=== PATIENT | female | born 1960 | race American Indian/Alaskan Native ===

== ENCOUNTER 2017-03-08 02:40 | Inpatient (IN) | payer OTHER ==
[2017-03-08] MEDS ORDERED: TYLENOL ONE (02:58)
[2017-03-08 04:30] LABS: Mean Corpuscular Hemoglobin 25 pg (28-32); Mean Corpuscular Volume 74 fl (79-97)
[2017-03-08 04:35] LABS: Hemoglobin 9.9 gm/dl (10.1-14.3)
[2017-03-08 04:36] LABS: Hematocrit 29.4 % (30.3-42.9); Mean Corpuscular HGB Conc 34 % (30-34); Platelet Count 133 K/mm3 (140-440); Red Cell Distribution Width 18.9 % (13.2-15.2)
[2017-03-08 04:45] LABS: Alanine Aminotransferase 21 units/L (7-56); Albumin 4.3 g/dL (3.9-5); BUN/Creatinine Ratio 24; Blood Urea Nitrogen 19 mg/dL (7-17); Calcium 9.5 mg/dL (8.4-10.2); Hemolysis Index 16
[2017-03-08] MEDS ORDERED: TYLENOL PO ONE (05:01)
--- NOTE | 2017-03-08 05:37 | XRay Report ---
FINAL REPORT EXAM: XR CHEST ROUTINE 2V HISTORY: fever, cll, cough TECHNIQUE: PA and lateral chest radiographs PRIORS: None. FINDINGS: No mediastinal shift. Cardiac silhouette is not enlarged. No pneumothorax, effusion, or focal pulmonary opacity. No acute skeletal finding. IMPRESSION: No focal pulmonary opacity.
--- NOTE | 2017-03-08 05:57 | Emergency Department Report ---
- General Chief Complaint: Upper Respiratory Infection Stated Complaint: BODY ACHES AND PAIN Time Seen by Provider: 03/08/17 04:47 Source: patient Mode of arrival: Ambulatory Limitations: No Limitations - History of Present Illness Initial Comments: This is a 56-year-old female with a history of chronic lymphocytic leukemia diagnosed October 2016 not on any medication who presents to the ED complaining of cough, fever, generalized body aches 1 week. Patient states she symptoms got worse yesterday. Patient states she sees an oncologist Dr. Dale Godoy. Patient denies chest pain, shortness of breath, dizziness, headache or any other symptoms. MD Complaint: fever, cough, sore throat - Related Data Previous Rx's Medication Instructions Recorded Last Taken Type Amoxicillin/K Clav Tab [Augmentin 1 each PO Q12HR #10 tablet 01/29/14 Unknown Rx 875MG TAB] Aspirin [Aspirin TAB] 325 mg PO QDAY #30 tablet 01/29/14 Unknown Rx Metoprolol [Lopressor TAB] 50 mg PO BID #60 tablet 01/29/14 Unknown Rx Allergies Allergy/AdvReac Type Severity Reaction Status Date / Time sulfamethoxazole Allergy Rash Verified 01/28/14 02:31 [From Bactrim] trimethoprim [From Bactrim] Allergy Rash Verified 01/28/14 02:31 ED Review of Systems ROS: Stated complaint: BODY ACHES AND PAIN Other details as noted in HPI Constitutional: denies: chills, fever Eyes: denies: eye pain, eye discharge, vision change ENT: congestion (nasal). denies: ear pain, throat pain Respiratory: cough. denies: shortness of breath, wheezing Cardiovascular: denies: chest pain, palpitations Endocrine: no symptoms reported Gastrointestinal: denies: abdominal pain, nausea, vomiting, diarrhea Genitourinary: denies: urgency, dysuria, discharge Musculoskeletal: denies: back pain, joint swelling, arthralgia Skin: denies: rash, lesions Neurological: denies: headache, weakness, paresthesias Psychiatric: denies: anxiety, depression Hematological/Lymphatic: denies: easy bleeding, easy bruising ED Past Medical Hx - Past Medical History Previous Medical History?: Yes Hx Hypertension: Yes Additional medical history: CLL - Surgical History Past Surgical History?: No - Social History Smoking Status: Never Smoker Substance Use Type: None - Medications Home Medications: Home Medications Medication Instructions Recorded Confirmed Last Taken Type Amoxicillin/K Clav Tab [Augmentin 1 each PO Q12HR #10 tablet 01/29/14 Unknown Rx 875MG TAB] Aspirin [Aspirin TAB] 325 mg PO QDAY #30 tablet 01/29/14 Unknown Rx Metoprolol [Lopressor TAB] 50 mg PO BID #60 tablet 01/29/14 Unknown Rx ED Physical Exam - General Limitations: No Limitations General appearance: alert, in no apparent distress - Head Head exam: Present: atraumatic, normocephalic - Eye Eye exam: Present: normal appearance, PERRL - ENT ENT exam: Present: normal exam, mucous membranes moist - Neck Neck exam: Present: normal inspection, full ROM. Absent: tenderness, meningismus, lymphadenopathy - Respiratory Respiratory exam: Present: normal lung sounds bilaterally. Absent: respiratory distress, wheezes, rales, rhonchi - Cardiovascular Cardiovascular Exam: Present: regular rate, normal rhythm. Absent: systolic murmur, diastolic murmur, rubs, gallop - GI/Abdominal GI/Abdominal exam: Present: soft, normal bowel sounds - Extremities Exam Extremities exam: Present: normal inspection - Back Exam Back exam: Present: normal inspection - Neurological Exam Neurological exam: Present: alert, oriented X3 - Psychiatric Psychiatric exam: Present: normal affect, normal mood - Skin Skin exam: Present: warm, dry, intact, normal color. Absent: rash ED Course Vital Signs 03/08/17 02:59 Temperature 101.3 F H Pulse Rate 115 H Respiratory 18 Rate Blood Pressure 159/77 O2 Sat by Pulse 98 Oximetry - Consultations Consultation #1: Spoke with heme oncologist marketing and promotions manager Dr. López who states the patient should be admitted for observation and he will see the patient in the morning. 03/08/17 05:53 Consultation #2: Discussed case with Dr. Godoy the hospitalist who is aware that the patient needs to be admitted. 03/08/17 05:54 ED Medical Decision Making - Lab Data Result diagrams: 03/08/17 03:18 03/08/17 03:18 - Radiology Data Radiology results: report reviewed, image reviewed FINAL REPORT EXAM: XR CHEST ROUTINE 2V HISTORY: fever, cll, cough TECHNIQUE: PA and lateral chest radiographs PRIORS: None. FINDINGS: No mediastinal shift. Cardiac silhouette is not enlarged. No pneumothorax, effusion, or focal pulmonary opacity. No acute skeletal finding. IMPRESSION: No focal pulmonary opacity. Transcribed By: MB Dictated By: KIMBERLY MISTRY MD Electronically Authenticated By: KIMBERLY MISTRY MD Signed Date/Time: 03/08/17 0133 - Medical Decision Making There is a 56-year-old female presents with upper respiratory tract infection ED course: Influenza A and B tests were negative. Tylenol administered for fever. Urinalysis, urine culture pending CBC shows elevated white count of sore 210,000. Chest x-ray ordered, Lactic acid ordered, VBG pH ordered. Chest x-ray within normal limits, lactic acid normal, VBG elevated I discussed case with attending Dr. Henao. I discussed patient with oncologist marketing and promotions manager Dr. Negrete. Based on this consultations patient will be admitted for observation and will be seen by oncologist in the morning. I discussed the patient and she will be staying overnight and will be admitting hospital. Critical care attestation.: If time is entered above; I have spent that time in minutes in the direct care of this critically ill patient, excluding procedure time. ED Disposition Clinical Impression: Elevated WBC count Qualifiers: Leukocytosis type: other Qualified Code(s): D72.828 - Other elevated white blood cell count Leukemia Qualifiers: Leukemia type: chronic, unspecified type Disposition: OP ADMIT IP TO THIS HOSP Is pt being admited?: Yes Does the pt Need Aspirin: No Condition: Stable Referrals: KEISHA LOCO MD [Primary Care Provider] - 3-5 Days
[2017-03-08 07:01] LABS: Anisocytosis 1+; Basophils % (Manual) 0 % (0.0-1.8); Eosinophils % (Manual) 0 % (0.0-4.3); Hypochromasia 1+; Ovalocytes 1+; Total Cells Counted 100
[2017-03-08 07:03] LABS: Acanthocytes Rare; Smudge Cells 3+; Stomatocytes Rare
[2017-03-08 07:05] LABS: Platelet Estimate Consistent w Auto
[2017-03-08 08:22] LABS: Bilirubin,Urine NEG (Negative); Blood,Urine SM (Negative); Color,Urine Red (Yellow); Nitrite,Urine NEG (Negative); Protein,Urine <15 mg/dL mg/dL (Negative); RBC,Urine < 1.0 /HPF (0.0-6.0); Urobilinogen,Urine < 2.0 mg/dL (<2.0)
[2017-03-08] MEDS ORDERED: DULCOLAX PR PRN (10:23)
[2017-03-08] MEDS ORDERED: ZOFRAN IV PRN (10:23)
[2017-03-08] MEDS ORDERED: MILK OF MAGNESIA PO PRN (10:23)
[2017-03-08] MEDS ORDERED: TYLENOL PO PRN (10:23)
--- NOTE | 2017-03-08 10:28 | History and Physical Report ---
History of Present Illness Date of examination: 03/08/17 Date of admission: 03/08/17 06:58 Chief complaint: Fever History of present illness: This is a 56-year-old female with a history of chronic lymphocytic leukemia diagnosed October 2016 not on any medication who presents to the ED complaining of cough, fever, generalized body aches 1 week. Patient states she symptoms got worse since yesterday. Patient states that she follows an oncologist Dr. Dale Godoy. Patient denies chest pain, shortness of breath, dizziness, headache or any other symptoms. Past medical History: h/o CLL Past surgical History: None Social History: Lives with family, denies any smoking, drinking and elicit drug abuse. Family History: No Significant h/o for cancer Review of System: Constitutional:+fever, + chills, no weight loss Ears, eyes, nose, mouth and throat: + nasal congestion, + nasal discharge, + sinus pressure, no vision change, no red eye. Neck: No neck pain or rigidity. Cardiovascular: No chest pain, no orthopnea, no palpitations, no leg swelling Respiratory: No shortness of breath, no cough, no congestion, no wheezing Gastrointestinal: no abdominal pain, no nausea, no vomiting Genitourinary : no dysuria, no hematuria Musculoskeletal: no joint swelling, +muscle ache Integumentary: no rash, no pruritis Neurological: no parathesias, no numbness, no tingling Endocrine: no cold or heat intolerance, no polyuria or polydipsia Hematologic/Lymphatic: no easy bruising, no easy bleeding, + neck gland swelling Allergic/Immunologic: no urticaria, no angioedema. Medications and Allergies Allergies Allergy/AdvReac Type Severity Reaction Status Date / Time sulfamethoxazole Allergy Rash Verified 01/28/14 02:31 [From Bactrim] trimethoprim [From Bactrim] Allergy Rash Verified 01/28/14 02:31 Home Medications Medication Instructions Recorded Confirmed Last Taken Type Amlodipine Besylate [Norvasc] 5 mg PO QDAY 03/08/17 03/08/17 03/08/17 History Aspirin [Aspirin TAB] 325 mg PO QDAY 03/08/17 03/08/17 03/08/17 10:00 History 325 Atenolol/Chlorthalidone 1 each PO DAILY 01/11/18 01/11/18 01/11/18 History [Atenolol-Chlorthalidone 100-25] Ergocalciferol [Vitamin D2] 1 cap PO QWEEK 03/08/17 03/08/17 Unknown History Ferrous Sulfate [Iron] 650 mg PO DAILY 03/08/17 03/08/17 03/07/17 10:00 History Active Meds: Active Medications Acetaminophen (Tylenol) 650 mg PO Q4H PRN PRN Reason: Pain MILD(1-3)/Fever >100.5/RODRIGUEZ Aspirin (Aspirin) 325 mg PO QDAY CAM Bisacodyl (Dulcolax) 10 mg SD QDAY PRN PRN Reason: Constipation unrelieved by MOM Famotidine (Pepcid) 20 mg PO BID [facility] Cefepime HCl 2 gm/ Sodium (Chloride) 20 mls @ 20 mls/10 min IV Q12HR CAM PRN Reason: Protocol Magnesium Hydroxide (Milk Of Magnesia) 30 ml PO Q4H PRN PRN Reason: Constipation Metoprolol Tartrate (Lopressor) 50 mg PO BID [facility] Exam - Physical Exam Narrative exam: GENERAL: well-developed and well-nourished AAF lying on bed appeared to be in mild discomfort. HEENT: Normocephalic. Atraumatic. No conjunctival congestion or icterus. Patient has moist mucous membranes. NECK: Supple. Trachea midline. + cervical lymphadenopathy CHEST/LUNGS: Clear to auscultated bilaterally, breathing nonlabored. No wheezes crackles or rhonchi. HEART/CARDIOVASCULAR: Regular in rate and rhythm. S1 and S2 positive. ABDOMEN: Abdomen is soft, nontender. Patient has normal bowel sounds. SKIN: There is no rash. Warm and dry. NEURO: No focal motor deficit. Follows command. MUSCULOSKELETAL: No joint effusion or tenderness. EXTRIMITY: No edema, no cyanosis or clubbing. PSYCH: Cooperative. - Constitutional Vitals: Temp Pulse Resp BP Pulse Ox 98.6 F 89 18 155/66 98 03/08/17 07:15 03/08/17 07:15 03/08/17 07:57 03/08/17 07:15 03/08/17 07:57 Results - Labs CBC & Chem 7: 03/09/17 20:38 03/08/17 03:18 Labs: Abnormal lab results 03/08/17 03/08/17 03/08/17 Range/Units 03:18 03:18 05:50 WBC 210.0 H* (4.5-11.0) K/mm3 Hgb 9.9 L (10.1-14.3) gm/dl Hct 29.4 L (30.3-42.9) % MCV 74 L (79-97) fl MCH 25 L (28-32) pg RDW 18.9 H (13.2-15.2) % Plt Count 133 L (140-440) K/mm3 Seg Neuts % (Manual) 3.0 L (40.0-70.0) % Lymphocytes % (Manual) 87.0 H (13.4-35.0) % Lymphocytes # (Manual) 182.7 H (1.2-5.4) K/mm3 Monocytes # (Manual) 12.6 H (0.0-0.8) K/mm3 VBG pH 7.422 H (7.320-7.420) Chloride 96.3 L (98-107) mmol/L BUN 19 H (7-17) mg/dL Glucose 107 H (65-100) mg/dL Urine WBC (Auto) (0.0-6.0) /HPF 03/08/17 Range/Units 07:55 WBC (4.5-11.0) K/mm3 Hgb (10.1-14.3) gm/dl Hct (30.3-42.9) % MCV (79-97) fl MCH (28-32) pg RDW (13.2-15.2) % Plt Count (140-440) K/mm3 Seg Neuts % (Manual) (40.0-70.0) % Lymphocytes % (Manual) (13.4-35.0) % Lymphocytes # (Manual) (1.2-5.4) K/mm3 Monocytes # (Manual) (0.0-0.8) K/mm3 VBG pH (7.320-7.420) Chloride (98-107) mmol/L BUN (7-17) mg/dL Glucose (65-100) mg/dL Urine WBC (Auto) 27.0 H (0.0-6.0) /HPF - Imaging and Cardiology Chest x-ray: report reviewed (no infiltrates) Assessment and Plan CLL - consulted hematology for further Mx - will also initiate sepsis protocol Possible sepsis - We will obtain blood culture, urine culture and sputum culture - Place on empiric antibiotics for now with cefepime - Continue IV fluid hydration and monitor BP - Continue to trend lactate HTN - will initiate home dose of metoprolol Anemia with thrombocytopenia - cont to monitor, likely due CLL Provide DVT prophylaxis Px with scd due to thrombocytopenia
[2017-03-08] MEDS ORDERED: PEPCID ONE (10:48)
[2017-03-08] MEDS: LOPRESSOR PO SCH ×2 (10:58→22:36)
[2017-03-08] MEDS: ASPIRIN PO SCH (10:59)
[2017-03-08] MEDS: MAXIPIME 2 GM in NACL 0.9% 20 ML IV SCH (12:08)
--- NOTE | 2017-03-08 19:07 | Consultation ---
History of Present Illness - Reason for Consult Consult date: 03/08/17 CLL/URI Requesting physician: LAUREL VASQUEZ - History of Present Illness Thank you for this consult, patient seen, examined, record reviewed, case d/w patient, and with ED doctor.I have called Dr Lima and d/w him, he was to call me back.Patient with known CLL, not on any active tx yet. She was dx more than 4yrs ago, and has remained stable. She presented to the ED this am, with flu like sxs, all started 1week ago..Her last lab draw was at [facility] , and she can not remember level.I have reviewed the peripheral blood, and no sign of any transformation, at this time.She has maintained Tmax of 102+, and signs of facial sinus congestion on my exam. Flu test in the ED was negative.UA shows 27WBC.My recommendation, will be to do CT of the facial/sinuses, and put on good coverage ABX, also do BC, nasal swab/culture.Will follow you. once recovered, she will go back to DR Lima. Past History Past Medical History: anemia, cancer Medications and Allergies Allergies Allergy/AdvReac Type Severity Reaction Status Date / Time sulfamethoxazole Allergy Rash Verified 01/28/14 02:31 [From Bactrim] trimethoprim [From Bactrim] Allergy Rash Verified 01/28/14 02:31 Home Medications Medication Instructions Recorded Confirmed Last Taken Type Amlodipine Besylate [Norvasc] 5 mg PO QDAY 03/08/17 03/08/17 03/08/17 History Aspirin [Aspirin TAB] 325 mg PO QDAY 03/08/17 03/08/17 03/08/17 10:00 History 325 Atenolol/Chlorthalidone 1 each PO DAILY 03/08/17 03/08/17 03/08/17 History [Atenolol-Chlorthalidone 100-25] Ergocalciferol [Vitamin D2] 1 cap PO QWEEK 03/08/17 03/08/17 Unknown History Ferrous Sulfate [Iron] 650 mg PO DAILY 03/08/17 03/08/17 03/07/17 10:00 History Active Meds: Active Medications Acetaminophen (Tylenol) 650 mg PO Q4H PRN PRN Reason: Pain MILD(1-3)/Fever >100.5/RODRIGUEZ Last Admin: 03/08/17 18:20 Dose: 650 mg Aspirin (Aspirin) 325 mg PO QDAY [facility] Last Admin: 03/08/17 10:59 Dose: 325 mg Bisacodyl (Dulcolax) 10 mg CO QDAY PRN PRN Reason: Constipation unrelieved by [facility] Famotidine (Pepcid) 20 mg PO BID [facility] Cefepime HCl 2 gm/ Sodium (Chloride) 20 mls @ 20 mls/10 min IV Q12H CAM PRN Reason: Protocol Last Admin: 03/08/17 12:08 Dose: 20 mls/10 min Sodium Chloride (Nacl 0.9% 1000 Ml) 1,000 mls @ 75 mls/hr IV DIRECT CAM Magnesium Hydroxide (Milk Of Magnesia) 30 ml PO Q4H PRN PRN Reason: Constipation Metoprolol Tartrate (Lopressor) 50 mg PO BID [facility] Last Admin: 03/08/17 10:58 Dose: Not Given Ondansetron HCl (Zofran) 4 mg IV Q8H PRN PRN Reason: N/V unrelieved by Reglan Review of Systems Constitutional: fatigue, malaise Ears, nose, mouth and throat: sinus pressure, sinus pain Breasts: deferred Exam - Constitutional Vitals: Temp Pulse Resp BP Pulse Ox 102.6 F H 98 H 18 100/53 97 03/08/17 16:00 03/08/17 16:00 03/08/17 16:00 03/08/17 16:00 03/08/17 14:24 General appearance: Present: mild distress, well-nourished - EENT Eyes: Present: PERRL ENT: hearing intact, clear oral mucosa - Neck Neck: Present: supple, normal ROM - Respiratory Respiratory effort: normal Respiratory: bilateral: CTA - Cardiovascular Heart Sounds: Present: S1 & S2. Absent: rub, click - Extremities Extremities: pulses symmetrical, No edema Peripheral Pulses: within normal limits - Abdominal General gastrointestinal: Present: soft, non-tender, non-distended, normal bowel sounds Female genitourinary: Present: normal - Rectal Rectal Exam: deferred - Integumentary Integumentary: Present: clear, warm, dry - Musculoskeletal Musculoskeletal: gait normal, strength equal bilaterally - Psychiatric Psychiatric: appropriate mood/affect, intact judgment & insight - Neurologic Neurologic: CNII-XII intact, moves all extremities Results - Labs CBC & Chem 7: 03/08/17 03:18 03/08/17 03:18 Labs: Abnormal lab results 03/08/17 03/08/17 03/08/17 Range/Units 03:18 03:18 05:50 WBC 210.0 H* (4.5-11.0) K/mm3 Hgb 9.9 L (10.1-14.3) gm/dl Hct 29.4 L (30.3-42.9) % MCV 74 L (79-97) fl MCH 25 L (28-32) pg RDW 18.9 H (13.2-15.2) % Plt Count 133 L (140-440) K/mm3 Seg Neuts % (Manual) 7.0 L (40.0-70.0) % Lymphocytes % (Manual) 90.0 H (13.4-35.0) % Lymphocytes # (Manual) 182.7 H (1.2-5.4) K/mm3 Monocytes # (Manual) 12.6 H (0.0-0.8) K/mm3 VBG pH 7.422 H (7.320-7.420) Chloride 96.3 L (98-107) mmol/L BUN 19 H (7-17) mg/dL Glucose 107 H (65-100) mg/dL Urine WBC (Auto) (0.0-6.0) /HPF 03/08/17 Range/Units 07:55 WBC (4.5-11.0) K/mm3 Hgb (10.1-14.3) gm/dl Hct (30.3-42.9) % MCV (79-97) fl MCH (28-32) pg RDW (13.2-15.2) % Plt Count (140-440) K/mm3 Seg Neuts % (Manual) (40.0-70.0) % Lymphocytes % (Manual) (13.4-35.0) % Lymphocytes # (Manual) (1.2-5.4) K/mm3 Monocytes # (Manual) (0.0-0.8) K/mm3 VBG pH (7.320-7.420) Chloride (98-107) mmol/L BUN (7-17) mg/dL Glucose (65-100) mg/dL Urine WBC (Auto) 27.0 H (0.0-6.0) /HPF Assessment and Plan - Patient Problems (1) Leukemia Current Visit: Yes Status: Acute Qualifiers: Leukemia type: chronic, unspecified type Plan to address problem: tx infection/supportive. (2) Uncontrolled hypertension Current Visit: No Status: Chronic Plan to address problem: BP control (3) Sinus congestion Current Visit: Yes Status: Acute Plan to address problem: see notes above.
[2017-03-08 21:29] LABS: Hematocrit 28.2 % (30.3-42.9); Hemoglobin 9.5 gm/dl (10.1-14.3); Mean Corpuscular HGB Conc 34 % (30-34); Mean Corpuscular Volume 74 fl (79-97); Platelet Count 128 K/mm3 (140-440); Red Blood Count 3.82 M/mm3 (3.65-5.03); Red Cell Distribution Width 19.3 % (13.2-15.2)
[2017-03-08 21:33] LABS: Mean Corpuscular Hemoglobin 25 pg (28-32)
--- NOTE | 2017-03-08 22:18 | Cat Scan Report ---
FINAL REPORT PROCEDURE: CT SINUSES WO/W CON TECHNIQUE: Computerized tomography of the facial bones and soft tissues with axial and coronal sections performed from the cranial aspect of the frontal sinuses to the caudal portion of the mandible without contrast material. HISTORY: severe sinus congestion. COMPARISON: No prior studies are available for comparison. FINDINGS: Bones: No significant abnormality. Paranasal sinuses: There is fluid in the left maxillary sinus.. There is fluid in the ethmoid air cells on the left and the left side of the sphenoid sinus. Soft tissues: No significant abnormality. Other: The right ostiomeatal unit is obstructed by mucosal thickening.. IMPRESSION: There is left maxillary, ethmoid and sphenoid sinusitis. There is obstruction of the right osteal meatal unit due to mucosal thickening. There are no bony abnormalities.
[2017-03-08 22:20] LABS: Basophils % (Manual) 0 % (0.0-1.8); Eosinophils % (Manual) 0.5 % (0.0-4.3); Monocytes % (Manual) 1.5 % (0.0-7.3); Total Cells Counted 200
[2017-03-08 22:21] LABS: Anisocytosis 1+; Platelet Estimate Appears Decreased
[2017-03-08 22:22] LABS: Target Cells Few
[2017-03-08] MEDS: PEPCID PO SCH (22:36)
[2017-03-09] MEDS: MAXIPIME 2 GM in NACL 0.9% 20 ML IV SCH ×2 (01:47→13:49)
[2017-03-09] MEDS: ASPIRIN PO SCH (09:35)
[2017-03-09] MEDS: LOPRESSOR PO SCH ×2 (09:35→22:53)
[2017-03-09] MEDS: PEPCID PO SCH (09:36)
--- NOTE | 2017-03-09 13:25 | Progress Note ---
Assessment and Plan CLL - consulted hematology for further Mx - now getting treated for sepsis - will f/u with her oncologist outpt for possible treatment Possible sepsis -likely due to sinusitis, negative for influenza - We follow blood culture, urine culture and sputum culture - cont on empiric antibiotics for now with cefepime - Continue IV fluid hydration and monitor BP - Continue to trend lactate HTN - will cont home dose of metoprolol Anemia with thrombocytopenia - cont to monitor, likely due CLL Provide DVT prophylaxis Px with scd due to thrombocytopenia Subjective Date of service: 03/09/17 Interval history: pt seen and examined states her symptom much better today tolerating diet Objective - Exam Narrative Exam: GENERAL: well-developed and well-nourished AAF lying on bed appeared to be in no discomfort. HEENT: Normocephalic. Atraumatic. No conjunctival congestion or icterus. Patient has moist mucous membranes. NECK: Supple. Trachea midline. + cervical lymphadenopathy CHEST/LUNGS: Clear to auscultated bilaterally, breathing nonlabored. No wheezes crackles or rhonchi. HEART/CARDIOVASCULAR: Regular in rate and rhythm. S1 and S2 positive. ABDOMEN: Abdomen is soft, nontender. Patient has normal bowel sounds. SKIN: There is no rash. Warm and dry. NEURO: No focal motor deficit. Follows command. MUSCULOSKELETAL: No joint effusion or tenderness. EXTRIMITY: No edema, no cyanosis or clubbing. PSYCH: Cooperative. - Constitutional Vitals: Vital Signs - 12hr 03/09/17 03/09/17 03/09/17 07:40 09:35 11:59 Temperature 100.4 F H 98.7 F Pulse Rate 97 H 97 H 72 Respiratory 20 22 Rate Blood Pressure 150/71 150/71 125/71 O2 Sat by Pulse 93 97 Oximetry - Labs CBC & Chem 7: 03/09/17 20:38 03/08/17 03:18 Labs: Abnormal lab results 03/08/17 03/08/17 Range/Units 03:18 21:06 WBC 190.3 H* (4.5-11.0) K/mm3 Hgb 9.5 L (10.1-14.3) gm/dl Hct 28.2 L (30.3-42.9) % MCV 74 L (79-97) fl MCH 25 L (28-32) pg RDW 19.3 H (13.2-15.2) % Plt Count 128 L (140-440) K/mm3 Seg Neuts % (Manual) 7.0 L 13.0 L (40.0-70.0) % Lymphocytes % (Manual) 90.0 H 85.0 H (13.4-35.0) % Seg Neutrophils # Man 24.7 H (1.8-7.7) K/mm3 Lymphocytes # (Manual) 161.8 H (1.2-5.4) K/mm3 Monocytes # (Manual) 2.9 H (0.0-0.8) K/mm3 Eosinophils # (Manual) 1.0 H (0.0-0.4) K/mm3
[2017-03-09] MEDS: NACL 0.9% 1000 ML 1,000 ML IV SCH (15:50)
[2017-03-09 22:04] LABS: Hematocrit 25.5 % (30.3-42.9); Hemoglobin 8.5 gm/dl (10.1-14.3); Mean Corpuscular HGB Conc 33 % (30-34); Mean Corpuscular Volume 75 fl (79-97); Platelet Count 114 K/mm3 (140-440); Red Blood Count 3.43 M/mm3 (3.65-5.03); Red Cell Distribution Width 18.9 % (13.2-15.2)
[2017-03-09 22:10] LABS: Mean Corpuscular Hemoglobin 25 pg (28-32)
--- NOTE | 2017-03-09 22:23 | Progress Note ---
Assessment and Plan - Patient Problems (1) Leukemia Current Visit: Yes Status: Acute Qualifiers: Leukemia type: chronic, unspecified type Plan to address problem: tx infection/supportive. (2) Uncontrolled hypertension Current Visit: No Status: Chronic Plan to address problem: BP control (3) Sinus congestion Current Visit: Yes Status: Acute Plan to address problem: see notes above. There is clear evidence of multi level severe sinusitis as per the CT scans. Subjective Date of service: 03/09/17 Interval history: Patient seen/examined, resting in bed, labs/scans reviewed, case d/w patient. CT of the sinuses indicative of severe sinusitis in several sinus zones with air fluid levels.WBC trending down.Patient remains on IV ABX.Will continue to monitor with you. Objective - Constitutional Vitals: Vital Signs - 12hr 03/09/17 03/09/17 11:59 14:56 Temperature 98.7 F 98.8 F Pulse Rate 72 76 Respiratory 22 20 Rate Blood Pressure 125/71 112/65 O2 Sat by Pulse 97 99 Oximetry General appearance: Present: mild distress - EENT Eyes: PERRL, EOM intact ENT: hearing intact, clear oral mucosa Ears: bilateral: normal - Neck Neck: supple, normal ROM - Respiratory Respiratory effort: normal Respiratory: bilateral: CTA - Breasts Breasts: deferred - Cardiovascular Rhythm: regular Heart Sounds: Present: S1 & S2. Absent: gallop, rub Extremities: pulses intact, No edema, normal color, Full ROM - Gastrointestinal General gastrointestinal: Present: soft, non-tender, non-distended, normal bowel sounds Rectal Exam: deferred - Genitourinary Female genitourinary: deferred - Integumentary Integumentary: clear, warm, dry - Musculoskeletal Musculoskeletal: 1, strength equal bilaterally - Neurologic Neurologic: moves all extremities - Psychiatric Psychiatric: memory intact, appropriate mood/affect, intact judgment & insight - Labs CBC & Chem 7: 03/09/17 20:38 03/08/17 03:18 Labs: Abnormal lab results 03/08/17 03/09/17 Range/Units 21:06 20:38 WBC 159.9 H* (4.5-11.0) K/mm3 RBC 3.43 L (3.65-5.03) M/mm3 Hgb 8.5 L (10.1-14.3) gm/dl Hct 25.5 L (30.3-42.9) % MCV 75 L (79-97) fl MCH 25 L (28-32) pg RDW 18.9 H (13.2-15.2) % Plt Count 114 L (140-440) K/mm3 Seg Neuts % (Manual) 13.0 L (40.0-70.0) % Lymphocytes % (Manual) 85.0 H (13.4-35.0) % Seg Neutrophils # Man 24.7 H (1.8-7.7) K/mm3 Lymphocytes # (Manual) 161.8 H (1.2-5.4) K/mm3 Monocytes # (Manual) 2.9 H (0.0-0.8) K/mm3 Eosinophils # (Manual) 1.0 H (0.0-0.4) K/mm3
[2017-03-09 22:45] LABS: Basophils % (Manual) 0 % (0.0-1.8); Eosinophils % (Manual) 0 % (0.0-4.3); Monocytes % (Manual) 0 % (0.0-7.3); Total Cells Counted 200
[2017-03-09 22:46] LABS: Anisocytosis 1+
[2017-03-09 22:47] LABS: Platelet Estimate Appears Decreased; Target Cells Few
[2017-03-10] MEDS: PEPCID PO SCH ×3 (11:39→23:40)
[2017-03-10] MEDS: ASPIRIN PO SCH (11:39)
[2017-03-10] MEDS: LOPRESSOR PO SCH ×2 (11:39→23:44)
--- NOTE | 2017-03-10 11:42 | Progress Note ---
Assessment and Plan Assessment and plan: CLL - consulted hematology for further Mx - now getting treated for sepsis - will f/u with her oncologist outpt for possible treatment Sepsis -likely due to sinusitis, negative for influenza - We follow blood culture, urine culture and sputum culture - cont on empiric antibiotics for now with cefepime - Continue IV fluid hydration and monitor BP - Continue to trend lactate Sinusitis. -Continue treating with antibiotics as noted above. HTN - will cont home dose of metoprolol Anemia with thrombocytopenia - cont to monitor, likely due CLL Provide DVT prophylaxis Px with scd due to thrombocytopenia Disposition. Anticipate discharge in a.m. History Interval history: Patient states that she feels better. No complaints of chest pain, shortness of breath. Hospitalist Physical - Constitutional Vitals: Temp Pulse Resp BP Pulse Ox 98.3 F 76 20 142/67 97 03/10/17 09:15 03/10/17 09:15 03/10/17 09:15 03/10/17 09:15 03/10/17 09:15 General appearance: Present: no acute distress - EENT Eyes: Present: PERRL, EOM intact ENT: hearing intact, clear oral mucosa, dentition normal - Neck Neck: Present: supple, normal ROM - Respiratory Respiratory effort: normal Respiratory: bilateral: CTA - Cardiovascular Rhythm: regular Heart Sounds: Present: S1 & S2. Absent: gallop, rub - Extremities Extremities: no ischemia, No edema, Full ROM - Abdominal General gastrointestinal: soft, non-tender, non-distended, normal bowel sounds - Integumentary Integumentary: Present: clear, warm, dry - Neurologic Neurologic: CNII-XII intact, moves all extremities Results - Labs CBC & Chem 7: 03/09/17 20:38 03/08/17 03:18 Labs: Laboratory Last Values WBC 159.9 K/mm3 (4.5-11.0) H* 03/09/17 20:38 RBC 3.43 M/mm3 (3.65-5.03) L 03/09/17 20:38 Hgb 8.5 gm/dl (10.1-14.3) L 03/09/17 20:38 Hct 25.5 % (30.3-42.9) L 03/09/17 20:38 MCV 75 fl (79-97) L 03/09/17 20:38 MCH 25 pg (28-32) L 03/09/17 20:38 MCHC 33 % (30-34) 03/09/17 20:38 RDW 18.9 % (13.2-15.2) H 03/09/17 20:38 Plt Count 114 K/mm3 (140-440) L 03/09/17 20:38 Lymph % (Auto) Contact Center Engineer 03/09/17 20:38 Lymph # Contact Center Engineer 03/09/17 20:38 Add Manual Diff Complete 03/09/17 20:38 Total Counted 200 03/09/17 20:38 Seg Neutrophils % Contact Center Engineer 03/09/17 20:38 Seg Neuts % (Manual) 12.0 % (40.0-70.0) L 03/09/17 20:38 Band Neutrophils % 0 % 03/09/17 20:38 Lymphocytes % (Manual) 88.0 % (13.4-35.0) H 03/09/17 20:38 Reactive Lymphs % (Man) 0 % 03/09/17 20:38 Monocytes % (Manual) 0 % (0.0-7.3) 03/09/17 20:38 Eosinophils % (Manual) 0 % (0.0-4.3) 03/09/17 20:38 Basophils % (Manual) 0 % (0.0-1.8) 03/09/17 20:38 Metamyelocytes % 0 % 03/09/17 20:38 Myelocytes % 0 % 03/09/17 20:38 Promyelocytes % 0 % 03/09/17 20:38 Blast Cells % 0 % 03/09/17 20:38 Nucleated RBC % Not Reportable 03/09/17 20:38 Seg Neutrophils # Man 19.2 K/mm3 (1.8-7.7) H 03/09/17 20:38 Band Neutrophils # 0.0 K/mm3 03/09/17 20:38 Lymphocytes # (Manual) 140.7 K/mm3 (1.2-5.4) H 03/09/17 20:38 Abs React Lymphs (Man) 0.0 K/mm3 03/09/17 20:38 Monocytes # (Manual) 0.0 K/mm3 (0.0-0.8) 03/09/17 20:38 Eosinophils # (Manual) 0.0 K/mm3 (0.0-0.4) 03/09/17 20:38 Basophils # (Manual) 0.0 K/mm3 (0.0-0.1) 03/09/17 20:38 Metamyelocytes # 0.0 K/mm3 03/09/17 20:38 Myelocytes # 0.0 K/mm3 03/09/17 20:38 Promyelocytes # 0.0 K/mm3 03/09/17 20:38 Blast Cells # 0.0 K/mm3 03/09/17 20:38 Pathologist Review 03/08/17 03:18 WBC Morphology Not Reportable 03/09/17 20:38 Hypersegmented Neuts Not Reportable 03/09/17 20:38 Hyposegmented Neuts Not Reportable 03/09/17 20:38 Hypogranular Neuts Not Reportable 03/09/17 20:38 Smudge Cells Not Reportable 03/09/17 20:38 Toxic Granulation Not Reportable 03/09/17 20:38 Toxic Vacuolation Not Reportable 03/09/17 20:38 Dohle Bodies Not Reportable 03/09/17 20:38 Pelger-Huet Anomaly Not Reportable 03/09/17 20:38 Darrion Rods Not Reportable 03/09/17 20:38 Platelet Estimate Appears decreased 03/09/17 20:38 Clumped Platelets Not Reportable 03/09/17 20:38 Plt Clumps, EDTA Not Reportable 03/09/17 20:38 Large Platelets Not Reportable 03/09/17 20:38 Giant Platelets Not Reportable 03/09/17 20:38 Platelet Satelliting Not Reportable 03/09/17 20:38 Plt Morphology Comment Not Reportable 03/09/17 20:38 RBC Morphology Not Reportable 03/09/17 20:38 Dimorphic RBCs Not Reportable 03/09/17 20:38 Polychromasia Not Reportable 03/09/17 20:38 Hypochromasia Not Reportable 03/09/17 20:38 Poikilocytosis Not Reportable 03/09/17 20:38 Anisocytosis 1+ 03/09/17 20:38 Microcytosis Few 03/09/17 20:38 Macrocytosis Not Reportable 03/09/17 20:38 Spherocytes Not Reportable 03/09/17 20:38 Pappenheimer Bodies Not Reportable 03/09/17 20:38 Sickle Cells Not Reportable 03/09/17 20:38 Target Cells Few 03/09/17 20:38 Tear Drop Cells Not Reportable 03/09/17 20:38 Ovalocytes Not Reportable 03/09/17 20:38 Stomatocytes Rare 03/08/17 03:18 Helmet Cells Not Reportable 03/09/17 20:38 Ortiz-Royal Bodies Not Reportable 03/09/17 20:38 Gibbon Rings Not Reportable 03/09/17 20:38 Rosy Cells Not Reportable 03/09/17 20:38 Bite Cells Not Reportable 03/09/17 20:38 Crenated Cell Not Reportable 03/09/17 20:38 Elliptocytes Few 03/09/17 20:38 Acanthocytes (Spur) Not Reportable 03/09/17 20:38 Rouleaux Not Reportable 03/09/17 20:38 Hemoglobin C Crystals Not Reportable 03/09/17 20:38 Schistocytes Not Reportable 03/09/17 20:38 Malaria parasites Not Reportable 03/09/17 20:38 Nura Bodies Not Reportable 03/09/17 20:38 Hem Pathologist Commnt No 03/09/17 20:38 VBG pH 7.422 (7.320-7.420) H 03/08/17 05:50 Sodium 137 mmol/L (137-145) 03/08/17 03:18 Potassium 4.2 mmol/L (3.6-5.0) 03/08/17 03:18 Chloride 96.3 mmol/L (98-107) L 03/08/17 03:18 Carbon Dioxide 22 mmol/L (22-30) 03/08/17 03:18 Anion Gap 23 mmol/L 03/08/17 03:18 BUN 19 mg/dL (7-17) H 03/08/17 03:18 Creatinine 0.8 mg/dL (0.7-1.2) 03/08/17 03:18 Estimated GFR > 60 ml/min 03/08/17 03:18 BUN/Creatinine Ratio 24 % 03/08/17 03:18 Glucose 107 mg/dL (65-100) H 03/08/17 03:18 Lactic Acid 0.80 mmol/L (0.7-2.0) 03/08/17 05:50 Calcium 9.5 mg/dL (8.4-10.2) 03/08/17 03:18 Total Bilirubin 0.30 mg/dL (0.1-1.2) 03/08/17 03:18 AST 29 units/L (5-40) 03/08/17 03:18 ALT 21 units/L (7-56) 03/08/17 03:18 Alkaline Phosphatase 84 units/L (35-129) 03/08/17 03:18 Total Protein 7.8 g/dL (6.3-8.2) 03/08/17 03:18 Albumin 4.3 g/dL (3.9-5) 03/08/17 03:18 Albumin/Globulin Ratio 1.2 % 03/08/17 03:18 Urine Color Red (Yellow) 03/08/17 07:55 Urine Turbidity Clear (Clear) 03/08/17 07:55 Urine pH 6.0 (5.0-7.0) 03/08/17 07:55 Ur Specific [place] 1.004 (1.003-1.030) 03/08/17 07:55 Urine Protein <15 mg/dl mg/dL (Negative) 03/08/17 07:55 Urine Glucose (UA) Neg mg/dL (Negative) 03/08/17 07:55 Urine Ketones Neg mg/dL (Negative) 03/08/17 07:55 Urine Blood Sm (Negative) 03/08/17 07:55 Urine Nitrite Neg (Negative) 03/08/17 07:55 Urine Bilirubin Neg (Negative) 03/08/17 07:55 Urine Urobilinogen < 2.0 mg/dL (<2.0) 03/08/17 07:55 Ur Leukocyte Esterase Lg (Negative) 03/08/17 07:55 Urine WBC (Auto) 27.0 /HPF (0.0-6.0) H 03/08/17 07:55 Urine RBC (Auto) < 1.0 /HPF (0.0-6.0) 03/08/17 07:55 U Epithel Cells (Auto) < 1.0 /HPF (0-13.0) 03/08/17 07:55
[2017-03-10] MEDS: MAXIPIME 2 GM in NACL 0.9% 20 ML IV SCH ×3 (20:53→23:39)
[2017-03-10 21:36] LABS: Hematocrit 26.7 % (30.3-42.9); Hemoglobin 8.1 gm/dl (10.1-14.3); Mean Corpuscular HGB Conc 31 % (30-34); Mean Corpuscular Volume 79 fl (79-97); Platelet Count 104 K/mm3 (140-440); Red Cell Distribution Width 19.3 % (13.2-15.2)
[2017-03-10 21:43] LABS: Mean Corpuscular Hemoglobin 24 pg (28-32)
[2017-03-10 22:12] LABS: Basophils % (Manual) 0 % (0.0-1.8); Eosinophils % (Manual) 0 % (0.0-4.3); Monocytes % (Manual) 0.5 % (0.0-7.3); Total Cells Counted 200
[2017-03-10 22:13] LABS: Anisocytosis 1+; Platelet Estimate Appears Decreased; Target Cells Few
--- NOTE | 2017-03-10 22:56 | Progress Note ---
Assessment and Plan - Patient Problems (1) Leukemia Current Visit: Yes Status: Acute Qualifiers: Leukemia type: chronic, unspecified type Plan to address problem: tx infection/supportive. (2) Uncontrolled hypertension Current Visit: No Status: Chronic Plan to address problem: BP control (3) Sinus congestion Current Visit: Yes Status: Acute Plan to address problem: see notes above. There is clear evidence of multi level severe sinusitis as per the CT scans. Subjective Date of service: 03/10/17 Interval history: Patient seen/examined, resting in bed, labs/scans reviewed, case d/w patient. CT of the sinuses indicative of severe sinusitis in several sinus zones with air fluid levels.WBC trending down.Patient remains on IV ABX.Will continue to monitor with you. Patient seen/examined, labs reviewed, and continues to come down.There is question as to if she got her IV Abx today or not. If , and upon d/c ,home, she will need to go home on oral ABX for the next 2weeks.preferably levaquin. Objective - Constitutional Vitals: Vital Signs - 12hr 03/10/17 03/10/17 11:39 14:37 Temperature 98.3 F Pulse Rate 72 73 Respiratory 16 Rate Blood Pressure 140/80 135/66 O2 Sat by Pulse 96 Oximetry General appearance: Present: mild distress, well-nourished - EENT Eyes: PERRL, EOM intact ENT: hearing intact, clear oral mucosa Ears: bilateral: normal - Neck Neck: supple, normal ROM - Respiratory Respiratory effort: normal Respiratory: bilateral: CTA - Breasts Breasts: deferred - Cardiovascular Rhythm: regular Heart Sounds: Present: S1 & S2. Absent: gallop, rub Extremities: pulses intact, No edema, normal color, Full ROM - Gastrointestinal General gastrointestinal: Present: soft, non-tender, non-distended, normal bowel sounds Rectal Exam: deferred - Genitourinary Female genitourinary: deferred - Integumentary Integumentary: clear, warm, dry - Musculoskeletal Musculoskeletal: 1, strength equal bilaterally - Neurologic Neurologic: moves all extremities - Psychiatric Psychiatric: memory intact, appropriate mood/affect, intact judgment & insight - Labs CBC & Chem 7: 03/10/17 21:08 03/08/17 03:18 Labs: Abnormal lab results 03/10/17 Range/Units 21:08 WBC 138.9 H* (4.5-11.0) K/mm3 RBC 3.40 L (3.65-5.03) M/mm3 Hgb 8.1 L (10.1-14.3) gm/dl Hct 26.7 L (30.3-42.9) % MCH 24 L (28-32) pg RDW 19.3 H (13.2-15.2) % Plt Count 104 L (140-440) K/mm3 Seg Neuts % (Manual) 6.0 L (40.0-70.0) % Lymphocytes % (Manual) 93.5 H (13.4-35.0) % Seg Neutrophils # Man 8.3 H (1.8-7.7) K/mm3 Lymphocytes # (Manual) 129.9 H (1.2-5.4) K/mm3
[2017-03-11] MEDS: NACL 0.9% 1000 ML 1,000 ML IV SCH (06:38)
[2017-03-11] MEDS: ASPIRIN PO SCH (09:01)
[2017-03-11] MEDS: LOPRESSOR PO SCH (09:01)
[2017-03-11] MEDS: PEPCID PO SCH (09:01)
--- NOTE | 2017-03-11 09:03 | Discharge Summary ---
Providers - Providers Date of Admission: 03/08/17 06:58 Date of discharge: 03/11/17 Attending physician: DEONTE ALLEN 03/08/17 10:23 Consult to Physician [CONS] Routine Consulting Provider: JEAN CARLOS HOWARD Reason For Exam: ALL Place consult to:: Dr Craven Notified:: DR. Mcqueen Phone number called:: [phone] Was contact made?: Yes If yes, spoke with:: DR. Mcquene Time called:: 15:48 Primary care physician: KEISHA LOCO Hospitalization Reason for admission: sepsis Condition: Stable Hospital course: This is a 56-year-old female with a history of chronic lymphocytic leukemia diagnosed October 2016 not on any medication who presented to the ED complaining of cough, fever, generalized body aches 1 week. The patient was admitted with diagnosis of sepsis secondary to sinusitis. Blood and urine cultures and found to be negative. CT scan revealed left maxillary, ethmoid and sphenoid sinusitis. Patient received IV antibiotics of cefepime. Patient has significant improvement throughout hospitalization. Patient was seen by hematology consultation. Patient will be discharged home with 2 weeks of Levaquin. Dedicated discharge time 32 minutes. Disposition: - TO HOME OR SELFCARE Time spent for discharge: 32 - Discharge Diagnoses (1) Sepsis Status: Acute (2) Leukemia Status: Acute Qualifiers: Leukemia type: chronic, unspecified type (3) Leukocytosis Status: Acute Qualifiers: Leukocytosis type: other Qualified Code(s): D72.828 - Other elevated white blood cell count (4) Sinus congestion Status: Acute Core Measure Documentation - Palliative Care Palliative Care/ Comfort Measures: Not Applicable - Core Measures Any of the following diagnoses?: none Exam - Constitutional Vitals: Temp Pulse Resp BP Pulse Ox 98.7 F 73 20 165/61 96 03/11/17 08:23 03/11/17 08:23 03/11/17 08:23 03/11/17 08:23 03/11/17 08:23 General appearance: Present: no acute distress, well-nourished - EENT Eyes: Present: PERRL ENT: hearing intact, clear oral mucosa - Neck Neck: Present: supple, normal ROM - Respiratory Respiratory effort: normal Respiratory: bilateral: CTA - Cardiovascular Heart Sounds: Present: S1 & S2. Absent: rub, click - Extremities Extremities: pulses symmetrical, No edema Peripheral Pulses: within normal limits - Abdominal General gastrointestinal: Present: soft, non-tender, non-distended, normal bowel sounds Female genitourinary: Present: normal - Integumentary Integumentary: Present: clear, warm, dry - Musculoskeletal Musculoskeletal: gait normal, strength equal bilaterally - Psychiatric Psychiatric: appropriate mood/affect, intact judgment & insight - Neurologic Neurologic: CNII-XII intact, moves all extremities Plan Activity: no restrictions Weight Bearing Status: Full Weight Bearing Diet: regular Follow up with: KEISHA LOCO MD [Primary Care Provider] - 3-5 Days JEAN CARLOS HOWARD DO [Staff Physician] - 7 Days Prescriptions: Levofloxacin [Levaquin TAB] 500 mg PO QDAY #14 tablet
[2017-03-11 13:01] VITALS: BP 165/82
== END 2017-03-11 14:10 | disposition home or self-care (01) | DRG 872 ==
LOC: ED 02:40 → 4A 06:58 → 3A 14:17
PROVIDERS: ADMIT Internal Medicine; ATTEND Hospitalist
DX: A41.9 Sepsis, unspecified organism (principal); C91.10 Chronic lymphocytic leukemia of B-cell type not having achieved remission; I10 Essential (primary) hypertension; D64.9 Anemia, unspecified; D69.6 Thrombocytopenia, unspecified; J32.9 Chronic sinusitis, unspecified; J32.0 Chronic maxillary sinusitis; J32.3 Chronic sphenoidal sinusitis; Z88.8 Allergy status to other drugs, medicaments and biological substances; Z88.2 Allergy status to sulfonamides; Z79.82 Long term (current) use of aspirin
CPT/HCPCS: 36415; 70488; 71046; 80053; 81001; 82140; 82805; 85007; 85025; 87040; 87086; 87400; 93005; 93010; J0692; J7030; Q9967